=== PATIENT | female | born 1940 | race Caucasian/White ===

== ENCOUNTER 2017-06-10 11:11 | Outpatient (RCR) | payer MEDICARE, OTHER ==
[2016-02-26 12:01] VITALS: BMI 30.1
[~2017-06-10 11:11] MED LIST: ALE70 PO; AMO875 PO; AMOX-362 PO; CALC500T42 PO; CHOL10005 PO; CHOL200038 PO; CHOL400C10 PO; CLIN-75 PO; FISH OIL1 CAP PO; GLUC500C29 PO; HYDR-4309 PO; LEVO75TA73 PO; LEVOXYL PO; MEC125 PO; MECL12.5 PO; METF-410 PO; METXR500; METXR500 PO; MULT-820 PO; OMEP-125 PO; OMEP-153 PO; OXYC-865 PO
[2017-06-10 11:28] LABS: PLATELET COUNT, AUTOMATED 255 K/uL (150-450)
[2017-06-13] MEDS ORDERED: IOPAMIDOL 76% 75 ML INFUS BTL 75 ML ONE (10:16)
[2017-06-13] MEDS ORDERED: NS 0.9% 20 ML SDV 40 ML ONE (10:16)
--- NOTE | 2017-06-13 14:24 | RADIOLOGY IMAGING REPORT ---
FACILITY: [facility] PATIENT NAME: Yany Mcgrath : 1940 MR: [id number] V: [id number] EXAM DATE: ORDERING PHYSICIAN: FIDELIA RIZO TECHNOLOGIST: Location: [facility] [place] Patient: Yany Mcgrath : 1940 Visit/Account:[id number] Date of Sevice: 06/13/2017 ABDOMEN/PELVIS WITH CONTRAST HISTORY: Upper Abdomen pain and diarrhea TECHNIQUE: Following administration of IV contrast contiguous axial images acquired through the abdom en/pelvis. Coronal and sagittal reformatting also performed. Dose Lowering Technique One of the following dose optimization techniques was utilized in the performance of this exam: Autom ated exposure control; adjustment of the mA and/or kV according to the patient's size; or use of an i terative reconstruction technique. Specific details can be referenced in the facility's radiology C T exam operational policy. CONTRAST: 75 mL Isovue-370 COMPARISON: February 25, 2016 FINDINGS: Visualized lung bases: Negative. Hepatobiliary: The liver is enlarged measuring 20 cm in length Spleen: Negative. Adrenals: Negative. Pancreas: Negative. Kidneys ureters or bladder: Negative. Genitalia: The endometrial stripe is mildly thickened at 8.4 mm GI: There is mild diverticulosis left-sided colon although no CT evidence of acute diverticulitis. Vessels/spaces/nodes: Negative. Bones/soft tissues: Mild spondylosis of the lumbar spine similar to the prior study Additional findings: None pertinent. IMPRESSION: Hepatomegaly The endometrial stripe is mildly thickened at 8.4 mm. Pelvic ultrasound/FRIT COATER consultation recommended . Mild diverticulosis left-sided colon although no CT evidence of acute diverticulitis Report Dictated By: Areli Lai MD at 06/13/2017 2:07 PM Report E-Signed By: Areli Lai MD at 06/13/2017 2:19 PM WSN:[email or web address]
== END 2017-06-13 18:00 | disposition home or self-care (01) ==
LOC: CT 11:11 → LAB 11:11 → EDSTATUS 06-11 07:33 → CT 06-13 18:00
PROVIDERS: ATTEND Family Medicine
DX: R16.2 Hepatomegaly with splenomegaly, not elsewhere classified (principal); K57.30 Diverticulosis of large intestine without perforation or abscess without bleeding
CPT/HCPCS: 36415; 74177; 85025; J7050; Q9967; 82040; 82247; 82310; 82374; 82435; 82565; 82947; 84075; 84132; 84155; 84295; 84450; 84460; 84520

== ENCOUNTER → 2017-09-10 | Outpatient (CLI) | payer MEDICARE, OTHER ==
[2016-02-26 12:01] VITALS: BMI 30.1
[~2017-09-10] MED LIST changes: +SINCALIDE 5 MCG VIAL INJ ONE; +WATER FOR INJ,STERILE 20 ML 20 ML ONE
--- NOTE | 2017-09-10 16:48 | RADIOLOGY IMAGING REPORT ---
FACILITY: [facility] PATIENT NAME: Yany Mcgrath : 1940 MR: [id number] V: [id number] EXAM DATE: ORDERING PHYSICIAN: FIDELIA RIZO TECHNOLOGIST: Location: [facility] [place] Patient: Yany Mcgrath : 1940 Visit/Account:[id number] Date of Sevice: 09/10/2017 HIDA W/CCK HISTORY: Right upper quadrant pain and diarrhea TECHNIQUE: 5.9 mCi Tc99m Hepatolite was injected intravenously. Multiple sequential gamma camera juan ges of the abdomen were obtained for 54 minutes. At that time, Kinevac was injected intravenously and an additional 30 minutes of gamma camera imaging data was acquired. A computer-generated region of i nterest was placed around the gallbladder and time-activity curve for the gallbladder was derived. Th e gallbladder ejection fraction was calculated. COMPARISON: None. FINDINGS: Liver uptake and excretion: Unremarkable. Time to appearance: Bile ducts: 10 minutes. Gallbladder: 26 minutes. Duodenum: 16 minutes. Duodenal-gastric reflux / extravasation: None. Post IV Kinevac: Normal and prompt contraction of the gallbladder. Patient symptoms: None Ejection fraction = 64% (normal range >35%). IMPRESSION: Normal, gallbladder ejection fraction of 64% Report Dictated By: Areli Lai MD at 09/10/2017 4:43 PM Report E-Signed By: Areli Lai MD at 09/10/2017 4:45 PM WSN:[email or web address]
== END ==
LOC: NUC 04:06
PROVIDERS: ATTEND Family Medicine
DX: R10.12 Left upper quadrant pain (principal); R10.11 Right upper quadrant pain; R19.7 Diarrhea, unspecified
CPT/HCPCS: 78226; A9537; J2805

== ENCOUNTER → 2017-09-11 | Outpatient (CLI) | payer MEDICARE, OTHER ==
[2016-02-26 12:01] VITALS: BMI 30.1
[~2017-09-11] MED LIST changes: -SINCALIDE 5 MCG VIAL INJ ONE; -WATER FOR INJ,STERILE 20 ML 20 ML ONE
--- NOTE | 2017-09-11 15:48 | RADIOLOGY IMAGING REPORT ---
FACILITY: [facility] PATIENT NAME: Yany Mcgrath : 1940 MR: [id number] V: [id number] EXAM DATE: ORDERING PHYSICIAN: FIDELIA RIZO TECHNOLOGIST: [place] [facility] [place]any Mcgrath : 1940 Visit/Account:[id number] Date of Sevice: 09/11/2017 DEXA Scan Clinical history: Osteopenia. Comparison: DEXA scan from DEXA scan 08/14/2016. LUMBAR SPINE: The bone mineral density (BMD) measured from L1-L4 correlates with a Z-score -0.4 and a T-score of - 2.0 which is osteopenia as defined by the World Health Organization. The corresponding risk of fract ure in the lumbar spine is increased compared with a young adult reference population. This value vargas s increased by 3.9 % since the prior study. More than 5% change is considered significant. HIP: Bone mineral density (BMD) measured in the left femoral neck region correlates with a Z-score 0.4 and a T-score of -1.5 which is osteopenia as defined by the World Health Organization. The correspond ing risk of fracture in the hip is increased compared with a young adult reference population. The to brandi hip value has decreased by 4.1 % since the prior study. More than 5% change is considered signif icant. Bone mineral density (BMD) measured in the Femoral Neck region measures 0.827 g/cm2. IMPRESSION: 1. Lumbar spine: Osteopenia. There has been increase in the bone mineral density since the previous exam. 2. Left femoral neck region: Osteopenia. There has been decrease in the bone mineral density of the total hip since the previous exam. 3. Femoral Neck: Bone Mineral Density is 0.827 g/cm2 The next DEXA scan of this patient should include the following sites: L1-L4 and the left hip. FRAX? WHO Fracture Risk Assessment Tool link: <http://www.shef.ac.uk/FRAX/tool.jsp?locationValue=9> PLEASE NOTE: 1) The World Health Organization defines low BMD as follows: T-score Normal > -1 Osteopenia < -1 and > -2.5 Osteoporosis < -2.5 without fractures Established osteoporosis < -2.5 with fractures 2) In general, you may wish to consider: Diagnosis Treatment Follow-up DEXA Normal BMD Prevention 2-3 years Osteopenia Prevention/therapy 1-2 years Osteoporosis Therapy Yearly 3) Fracture risk estimated from the T-score is more accurate for vertebral fractures (often spontane ous) than for hip fractures. Report Dictated By: Sim Bahena at 09/11/2017 3:22 PM Report E-Signed By: Sim Bahena at 09/11/2017 3:43 PM WSN:[email or web address]
--- NOTE | 2017-09-12 10:29 | RADIOLOGY IMAGING REPORT ---
FACILITY: [facility] - [place] PATIENT NAME: LETICIA TERRY : [id number] MR: [id number] V: [id number] EXAM DATE: ORDERING PHYSICIAN: FIDELIA RIZO TECHNOLOGIST: Jacqueline Alvarez PROCEDURE:BILATERAL DIGITAL SCREENING MAMMOGRAM WITH CAD ASSISTED INTERPRETATION & 3D TOMOSYNTHESIS COMPARISON:Prior mammograms 05/11/16, 05/10/15, 03/30/14, 10/21/12, 08/23/11. INDICATIONS:screening FINDINGS: Mildly heterogeneous fibroglandular tissue is seen throughout the breasts. The parenchymal pattern has remained stable allowing for difference in mammographic technique & patient positioning. There is no evidence of malignant appearing mass, malignant appearing calcifications or other secondary sign of malignancy in either breast. DIAGNOSTIC CATEGORY 1--NEGATIVE. RECOMMENDATIONS: ROUTINE MAMMOGRAM AND CLINICAL EVALUATION. IMPRESSION: BIRADS 1: Negative No significant abnormality is seen. Dictated by: Areli Lai M.D. on 09/11/2017 at 16:55 Transcribed by: TIEN on 09/12/2017 at 9:20 Approved by: Areli Lai M.D. on 09/12/2017 at 10:28 [facility]
== END ==
LOC: MAMO 00:56
PROVIDERS: ATTEND Family Medicine
DX: Z13.820 Encounter for screening for osteoporosis (principal); Z12.31 Encounter for screening mammogram for malignant neoplasm of breast; M85.89 Other specified disorders of bone density and structure, multiple sites; Z78.0 Asymptomatic menopausal state
CPT/HCPCS: 77063; 77067; 77080

== ENCOUNTER 2017-09-29 06:13 | Emergency (ER) | payer MEDICARE, OTHER ==
[2016-02-26 12:01] VITALS: Wt 69.4 kg
[~2017-09-29 06:13] MED LIST changes: -METF-410 PO; +METF-411 PO
--- NOTE | 2017-09-29 06:17 | ER Report ---
History and Physical Time Seen By MD: 06:17 HPI/ROS CHIEF COMPLAINT: Finger infection HISTORY OF PRESENT ILLNESS: 76-year-old female presents ambulatory to the ER complaining of left small finger swelling and pain for 3 days. It's been severe and throbbing last night which prompted her to come to the ER early this morning. She denies fever, chills or body aches. Patient's been taking ibuprofen without relief. Allergies: Coded Allergies: amoxicillin (Verified Allergy, Unknown, NAUSEA/VOMITING, 09/29/17) Home Meds Active Scripts Cephalexin 500 Mg Tab (KEFLEX 500 MG TAB) 500 Mg Tablet, 500 MG PO TID for infection, #20 TAB Prov:RODNEY STEPHENSON DO 09/29/17 Levothyroxine Sodium (LEVOTHYROXINE SODIUM) 75 Mcg Tablet, 75 MCG PO QDAY, #30 TAB Prov:DELMAR THOMPSON MD 02/25/16 Reported Medications Cholecalciferol (Vitamin D3) (VITAMIN D3) 1,000 Unit Tablet, 2000 UNIT PO BID, TAB 03/13/16 Omeprazole (OMEPRAZOLE) Unknown Strength Capsule.dr, 1 CAP PO PRN Y for HEARTBURN, CAP 03/13/16 Metformin Hcl (METFORMIN HCL) 500 Mg Tablet, 1 TAB PO BID, TAB 03/13/16 Reviewed Nurses Notes: Yes Old Medical Records Reviewed: Yes Hx Smoking: No Smoking Status: Never Smoker Exposure to Second Hand Smoke?: No Hx Substance Use Disorder: No Hx Alcohol Use: Yes Constitutional Vital Sign - Last 24 Hours 09/29/17 09/29/17 09/29/17 09/29/17 06:19 06:20 06:30 06:43 Temp 98.1 Pulse 80 75 Resp 17 B/P (MAP) 152/89 (110) 152/89 162/80 (107) Pulse Ox 92 91 O2 Delivery Room Air Physical Exam General appearance: Alert no distress. Respiratory: Chest is non tender, lungs are clear to auscultation. Cardiac: Regular rate and rhythm Extremities: Examination of the left small finger reveals a paronychia with surrounding cellulitis extending around to the palmar surface. There is a small pustule on the lateral aspect of the nail cuticle DIFFERENTIAL DIAGNOSIS: After history and physical exam differential diagnosis was considered for paronychia, cellulitis, failing, foreign body, Medical Decision Making ED Course/Re-evaluation ED Course Patient was minute to an examination room. H&P was done. The differential diagnoses was considered. Patient looked like she might benefit from some drainage. She has severe throbbing pain. A digital block is performed. Marcaine 0.5% plain. A #11 scalpel blade was used to make a small incision along the margin of the cuticle. A small amount of purulent drainage was noted. Patient's finger was dressed. She'll be started on Keflex 500 mg 3 times daily. Patient advised to perform hot soaks. Decision to Disposition Date: September 29, 2017 Decision to Disposition Time: 06:35 Depart Departure Latest Vital Signs Vital Signs Date Time Temp Pulse Resp B/P (MAP) Pulse Ox O2 Delivery O2 Flow Rate FiO2 09/29/17 06:43 75 91 09/29/17 06:30 162/80 (107) 09/29/17 06:20 98.1 17 Room Air Impression: Primary Impression: Paronychia Additional Impressions: Cellulitis of finger of left hand Type II diabetes mellitus Condition: Improved Disposition: HOME OR SELF-CARE Referrals: FIDELIA RIZO DO (PCP) New Scripts Cephalexin 500 Mg Tab (KEFLEX 500 MG TAB) 500 Mg Tablet 500 MG PO TID for infection, #20 TAB Prov: RODNEY STEPHENSON DO 09/29/17 Patient Instructions: Cellulitis (ED) Additional Instructions: Perform warm/hot water soaks of your left small finger 2-3 times daily. Follow-up with primary care or Dr. Sarkar if unimproved in 3-5 days Problem Qualifiers Additional Impressions: Type II diabetes mellitus Diabetes mellitus continuous churn buttermaker insulin use: with continuous churn buttermaker use Diabetes mellitus complication status: without complication Qualified Codes: E11.9 - Type 2 diabetes mellitus without complications; Z79.4 - [facility] (current) use of insulin RODNEY STEPHENSON DO September 29, 2017 06:17
[2017-09-29 06:30] VITALS: BP 162/80
[2017-09-29] MEDS ORDERED: CEPHALEXIN MONO 500 MG CAP PO ONE (06:35)
[2017-09-29] MEDS ORDERED: CEPH500T7 PO (06:36)
== END 2017-09-29 06:58 | disposition home or self-care (01) ==
LOC: ER 06:32
DX: L03.012 Cellulitis of left finger (principal); E11.9 Type 2 diabetes mellitus without complications; Z79.4 Long term (current) use of insulin
CPT/HCPCS: 10060; 99282; A9270

== ENCOUNTER → 2018-04-15 | Outpatient (CLI) | payer MEDICARE, OTHER ==
[2016-02-26 12:01] VITALS: BMI 30.1
[~2018-04-15] MED LIST changes: +CEPH500T7 PO; -HYDR-4309 PO; +HYDR-653 PO; -METF-411 PO; +METF-450 PO
--- NOTE | 2018-04-15 09:42 | EKG ---
FACILITY: [facility] PATIENT NAME: LETICIA TERRY : [id number] MR: [id number] V: [id number] EXAM DATE: ORDERING PHYSICIAN: FIDELIA RIZO TECHNOLOGIST: RUTH Lechuga Reason : PREOP Blood Pressure : / mmHG Vent. Rate : 076 BPM Atrial Rate : 076 BPM P-R Int : 160 ms QRS Dur : 080 ms QT Int : 400 ms P-R-T Axes : 034 -09 022 degrees QTc Int : 450 ms Normal sinus rhythm Normal ECG When compared with ECG of 25-FEB-2016 10:57, Nonspecific T wave abnormality no longer evident in Anterior leads Confirmed by JAVIER SCHROEDER ([id number]) on 04/15/2018 1:20:14 PM Referred By: DARRIUS Confirmed By:JAVIER SCHROEDER
== END ==
LOC: LAB 08:16
PROVIDERS: ATTEND Family Medicine
DX: E11.9 Type 2 diabetes mellitus without complications (principal); E03.9 Hypothyroidism, unspecified; N81.4 Uterovaginal prolapse, unspecified
CPT/HCPCS: 36415; 82040; 82247; 82310; 82374; 82435; 82565; 82947; 83036; 84075; 84132; 84155; 84295; 84443; 84450; 84460; 84520; 85027; 93005

== ENCOUNTER 2018-04-23 01:10 | Observation (INO) | payer MEDICARE, OTHER ==
[2016-02-26 12:01] VITALS: Ht 152.4 cm; Wt 67.6 kg
[2018-04-23] VITALS (17 sets, daily range): BP systolic 103–148; BP diastolic 53–100
[~2018-04-23] VITALS: Ht 152.4 cm; Wt 67.6 kg
[2018-04-23] MEDS ORDERED: ACETAMINOPHEN(*)1000 MG/100 ML 100 ML IVPB ONE (07:00)
[2018-04-23] MEDS ORDERED: LIDOCAINE/SOD BICARB 8.4% SYR ID ONE (09:50)
[2018-04-23] MEDS ORDERED: MIDAZOLAM 2 MG/2 ML VIAL IVP PRN (09:50)
[2018-04-23] MEDS ORDERED: NORMOSOL R SOLN(*) 1000 ML BAG 1,000 ML IV PRN (09:50)
[2018-04-23] MEDS ORDERED: ONDANSETRON 4 MG/2 ML VIAL ONE (09:55)
[2018-04-23] MEDS ORDERED: DEXAMETHASONE SOD 4 MG/ML VIAL ONE (09:55)
[2018-04-23] MEDS ORDERED: LIDOCAINE MPF 1% 5 ML VIAL ONE (09:55)
[2018-04-23] MEDS ORDERED: PROPOFOL EMUL(*) 10MG/ML 20 ML 20 ML ONE (09:55)
[2018-04-23] MEDS ORDERED: fentaNYL CITR 250 MCG/5 ML AMP ONE (09:57)
[2018-04-23] MEDS ORDERED: SUGAMMADEX SOD 200 MG/2 ML SDV ONE (09:59)
[2018-04-23] MEDS ORDERED: PHENAZOPYRIDINE 200 MG TAB PO ONE (10:05)
[2018-04-23] MEDS ORDERED: ceFAZolin(*) 1 GM VIAL 1 GM in NS(*) 0.9% 100 ML ADDVANT BAG 100 ML IVPB ONE (10:05)
[2018-04-23] MEDS ORDERED: BUPIV/EPI 0.25% 1:200,000 50ML INFIL ONE (10:17)
[2018-04-23] MEDS ORDERED: VASOPRESSIN 20 UNIT/ML VIAL ONE (11:10)
[2018-04-23] MEDS ORDERED: NS(*) 0.9% 100 ML BAG 100 ML ONE ×2 (11:14→11:20)
[2018-04-23] MEDS ORDERED: ESTROGENS CONJ VAG CREAM 30 GM TUBE PV ONE (12:08)
--- NOTE | 2018-04-23 13:39 | Post Operative Note ---
Operative Note - [facility] Operative Day Date: Apr 23, 2018 Time: 13:38 Physicians Surgeon: Lopez Job Estimator: Aleksandr Anesthesia: GETA, Cretay Diagnosis Pre-Op Diagnosis: Uterovaginal prolapse Post-Op Diagnosis: Same Procedure Procedure(s): RATLH, BSO, MMC Dx cysto A&P Specimen Removed:(Maybe N/A): Uterus, tubes, ovaries Fluids Fluids: IVF: 2400cc UOP: 50cc Estimated Blood Loss: 100cc MERISSA PEREZ MD Apr 23, 2018 13:39
[2018-04-23] MEDS ORDERED: ONDANSETRON 4 MG/2 ML VIAL IV PRN (13:40)
[2018-04-23] MEDS ORDERED: MAGNESIUM HYDROXIDE* 30ML UDCP PO PRN (13:40)
[2018-04-23] MEDS ORDERED: ACETAMINOPHEN 325 MG TAB PO PRN (13:40)
[2018-04-23] MEDS ORDERED: METOCLOPRAMIDE 10 MG/2 ML SDV IV PRN (13:40)
[2018-04-23] MEDS ORDERED: SIMETHICONE 80 MG CHEW CHEW PRN (13:40)
[2018-04-23] MEDS ORDERED: HYDROmorphone HCL 2 MG/ML SDV IVP PRN (13:45)
--- NOTE | 2018-04-23 17:01 | OB/GYN Progress Note ---
OB Subjective Progress Notes Subjective Pt is feeling well. Her pain is well controlled so far. No ambulating yet. Wilson and vaginal packing still in. No CP/SOB/dizziness. OB Objective Physical Exam Vital Signs Date Time Temp Pulse Resp B/P (MAP) Pulse Ox O2 Delivery O2 Flow Rate FiO2 04/23/18 16:30 76 14 123/69 (87) 94 Nasal Cannula 1.0 04/23/18 14:20 97.7 General Appearance: Alert/Awake/No Acute Distress Neurological: No Gross deficits Eyes: Normal Extraocular Movement & Vison Cardiovascular: Normal Rhythm & Peripheral Pulses Respiratory: No Respiratory Distress, Clear to Auscultation Abdomen: Soft, Non-Tender, Non-Distended Incision: Clean, Dry, Intact Musculoskeletal: No Weakness/Pain Extremities: No Cyanosis,Clubbing or Edema Integumentary: Skin Intact without Lesions or Rash Psychological: Alert & Oriented X3, Appropriate Mood & Affect Assessment and Plan Problems: (1) History of robot-assisted laparoscopic hysterectomy Assessment & Plan: POD#0 s/p RATLH, BSO, MMC, A&P repair, cysto. Routine orders. Will remove packing tonight at 2100hrs. Continue bowel regimen. MERISSA PEREZ MD Apr 23, 2018 17:01
[2018-04-23] MEDS ORDERED: IBUP600T22 PO (17:03)
[2018-04-23] MEDS ORDERED: OXYC-865 PO (17:03)
--- NOTE | 2018-04-23 17:15 | OPERATIVE REPORT 1 ---
EVENT DATE: April 23, 2018 SURGEON: Candie Marroquin MD ANESTHESIOLOGIST: Rohan Quiroz MD ANESTHESIA: General endotracheal tube. CAT WAGON OPERATOR: Elia Brandon DO PREOPERATIVE DIAGNOSIS Uterovaginal prolapse. POSTOPERATIVE DIAGNOSIS Uterovaginal prolapse. PROCEDURES PERFORMED 1. Robotic-assisted total laparoscopic hysterectomy with bilateral salpingo- oophorectomy and modified Rodriguez culdoplasty. 2. Diagnostic cystoscopy. 3. Anterior and posterior colporrhaphy. SPECIMENS REMOVED Uterus, bilateral fallopian tubes, and bilateral ovaries. INTRAVENOUS FLUIDS 2400 mL URINE OUTPUT 50 mL ESTIMATED BLOOD LOSS 100 mL INDICATIONS FOR PROCEDURE This patient is a 77-year-old, G4, P4, who presented to clinic to discuss a vaginal bulge. On exam, she was found to have a significant uterovaginal prolapse. She was, therefore, consented for the above-said procedure. Please see the History and Physical for full details. DESCRIPTION OF PROCEDURE Patient was properly identified and taken to the operating room. She was placed under general endotracheal tube anesthesia, placed in dorsal lithotomy position, and prepped and draped in the usual fashion for laparoscopic-assisted vaginal procedure. The patient received Ancef preoperatively for prophylactic antibiotics. Her SCDs were on and functioning at the time of the procedure. A bimanual exam was performed which revealed a small anteverted uterus. A speculum was placed to visualize the cervix. The anterior lip was grasped with an Allis clamp. The cervix was serially dilated to 5 mm using Hegar dilators. At this time, with gentle traction, the cervix was able to come out 1 cm beyond the introitus. A medium VCare uterine manipulator was requested and assembled. A suture was then placed through the anterior lip of the cervix, through the os, and then from the os through the posterior lip of the cervix. This was then passed through the VCare device. The VCare was placed into the uterine fundus, and the tip was insufflated. This remained in place, and the colpotomy ring was advanced to be flush against the cervix and vaginal mucosa. This was then tied down with 0 Vicryl suture. The PneumoClear was then advanced into the vagina and secured. A Wilson catheter was then placed to drain the bladder. The patient was then placed in the supine position, and attention was turned to the laparoscopic portion of the procedure. The supraumbilical region was infiltrated with 0.25% Marcaine with epinephrine. A Veress needle was tested and proven to be functioning. An 8 mm incision was then made supraumbilically. A Veress needle was passed through this incision into the abdominal cavity using the double click test. Pneumoperitoneum was then achieved. The 8 mm trocar was introduced through the supraumbilical midline incision under direct visualization using a Synup laparoscope. Once entry into the abdominal cavity was confirmed, the remaining locations of the trocars were planned with two on the right and two on the left. The two 8 mm trocars were inserted under direct visualization on the patient's right side, and an 8 mm more medial left incision and an 11 mm incision within the 11 mm trocar on the most lateral incision on the left. At this time, the patient was placed in a Trendelenburg position. The da Vandana robotic system was prepped for docking. This was brought in an aligned. Endoscope port was docked. The endoscope was then introduced, and targeting was performed on the uterus. The remaining arms were then docked without difficulty. The fenestrated bipolar graspers, ProGrasp, and monopolar scissors were then advanced under direct visualization to the pelvis, and the energy was connected. At this time, I was able to break sterile attire and sit at the console for the hysterectomy. Examination of the pelvis revealed no significant adhesions or abnormalities. In order to initiate the salpingo-oophorectomy on the patient's right side, the right ureter was identified and noted to be far away from the IP ligament. Therefore, the IP ligament was placed on gentle traction by grasping the patient's tube and ovary. The IP was then cauterized and transected using a combination of bipolar and monopolar scissors. Once this was achieved, the fallopian tube was taken down from the pelvic sidewall, from the mesosalpinx, up to the level of the round ligament. The round ligament was then cauterized and transected, which allowed opening the broad ligament. The anterior leaflet of the broad ligament was then opened and brought across the midline above the colpotomy ring in order to separate the vesicouterine peritoneum. The posterior peritoneum was then dissected further off the uterus on the same side of the cervix down to the cervix. The uterine vessels were then identified, cauterized, and transected in order to allow the colpotomy to be performed. Attention was then turned to the patient's left side where the left ureter was identified and also noted to be far away from the IP ligament. The left IP was cauterized and transected similar to the right side. The mesosalpinx was taken down, followed by cautery and ligation of the round ligament. The round ligament was opened, and the anterior leaflet was brought down to the midline where the prior vesicouterine peritoneum on the other side had been dissected. The posterior leaflet was then also brought down to the level of the colpotomy ring. The uterine vessels were visualized and cauterized. These were taken down with monopolar scissors to the level of the colpotomy ring. At this time, the bladder flap was further delineated and brought down without difficulty to a safe area in order to allow for closure of the vaginal cuff. The colpotomy was then initiated posteriorly with identification of the colpotomy ring. The colpotomy was then continued in a circumferential fashion until the entire colpotomy was completed. The uterus was then delivered through the vagina, and a bulb grenade was placed in the vagina to maintain a pneumoperitoneum. The cuff was copiously irrigated and noted to be hemostatic. An 0 Vicryl suture was then utilized in a [id number]-[id number] fashion to reapproximate the tissue on the right corner. A V-Loc suture was then initiated on the patient's left side to reapproximate the left corner, following to the right with a suture. This was then completely closed, and the suture was followed backwards with one additional suture. Once this was completed, copious irrigation was again performed. At this time, a Rodriguez culdoplasty was then performed using an 0 Vicryl suture by incorporating the right uterosacral along the posterior aspect of the peritoneum and followed into the left uterosacral. This was then brought back across to the right side by incorporating the vaginal mucosa and cuff closure. This was then tied down in a pursestring fashion. Using the Ismael-Thomasen, the fascia of the financial legal assistant port was then closed using an 0 Vicryl with robotic assistance. All robot arms were undocked, and instruments were removed. Pneumoperitoneum was relieved, and the 11 mm fascia was tied down. All five skin incisions were reapproximated using a 4-0 Monocryl and closed with Dermabond. The Wilson catheter was then removed from the bladder. A cystoscope was assembled and introduced via urethra and into the bladder under direct visualization. The entire bladder was evaluated and deemed normal without any lesions or sutures. Bilateral ureteral jets were noted with Pyridium stained urine. The cystoscope was then removed, and the Wilson catheter was replaced. Attention was then turned to the anterior repair. Two Allis clamps were utilized at the most distal aspect of the cystocele just proximal to the vaginal cuff. An additional Allis clamp was utilized at the more distal aspect of the cystocele approximately 1 cm proximal to the urethra. A midline incision was planned using a marker. This area was then hydrodissected with dilute vasopressin solution to help hydrodissect and assist with bleeding. The vaginal tissue was then opened with a scalpel, and vaginal tissue was excised from the underlying fascia along the midline. This was then carefully dissected with blunt and sharp dissection off the underlying vaginal mucosa to a level of where the rest of the cystocele repair needed to be performed. Multiple sutures of 2- 0 Vicryl were then placed in a mattress formation, closing from the most distal to the more proximal aspect of the anterior cystocele. Once the fascia was reapproximated, the redundant vaginal tissue was excised, and the vagina was closed in the midline, working from one apex to the next using a 2-0 Vicryl. Attention was then turned to the posterior repair. Two Allis clamps were utilized at the introitus of the vaginal tissue, and a triangle was marked where the incision would occur. The anterior vaginal tissue was then hydrodissected with dilute vasopressin solution. The vaginal tissue was then excised from the underlying fascia along the midline. This was opened in the midline using Metzenbaum scissors. The underlying fascia was then carefully dissected using a combination of blunt and sharp dissection off the underlying vaginal mucosa to a level of where the rectus repair would need to be performed. Multiple sutures of 0 Vicryl were then placed in a mattress formation, closed from superior to inferior aspect of the posterior repair. Once the fascia was reapproximated, a rectal exam was performed and did confirm great support. The redundant vaginal tissue was then excised, and the vagina was closed in the midline starting at the apex of the posterior repair using a 2-0 Vicryl. This was then carried down to the level of the vaginal introitus and carried down along the perineum in the usual fashion. Hemostasis was assured. A vaginal packing was then placed to help with hemostasis. The patient tolerated this procedure well and recovered in the Post-Anesthesia Care Unit. All sponge, needle, and instrument counts were correct at the end of this procedure. ANNALEE
[2018-04-23] MEDS: KETOROLAC 15 MG/ML VIAL IVP SCH (17:31)
[2018-04-23] MEDS: FAMOTIDINE 20 MG TAB PO SCH (20:57)
[2018-04-23] MEDS: DOCUSATE CALCIUM 240 MG CAP PO SCH (20:57)
[2018-04-23] MEDS: DLR(*) 1000 ML BAG 1,000 ML IV PRN (20:58)
[2018-04-24] VITALS (7 sets, daily range): BP systolic 107–133; BP diastolic 55–70
[2018-04-24] MEDS: KETOROLAC 15 MG/ML VIAL IVP SCH ×2 (00:07→06:01)
[2018-04-24] MEDS: DLR(*) 1000 ML BAG 1,000 ML IV PRN (03:47)
[2018-04-24 06:03] LABS: PLATELET COUNT, AUTOMATED 202 K/uL (150-450)
--- NOTE | 2018-04-24 08:14 | OB/GYN Progress Note ---
OB Subjective Progress Notes Subjective Doing well. Pain controlled with oral medications. Tolerating regular diet. Wilson removed, but patient not yet ambulating or voiding. Minimal vaginal bleeding. No chest pain, shortness of breath or dizziness. OB Objective Physical Exam Vital Signs Date Time Temp Pulse Resp B/P (MAP) Pulse Ox O2 Delivery O2 Flow Rate FiO2 04/24/18 03:48 97.9 65 16 112/58 (76) 93 Nasal Cannula 2.0 Intake and Output 04/24/18 06:59 Intake Total 4277 ml Output Total 1050 ml Balance 3227 ml Intake Oral 300 ml IV Total 3977 ml Output Urine Total 1050 ml General Appearance: Alert/Awake/No Acute Distress Neurological: No Gross deficits Eyes: Normal Extraocular Movement & Vison Cardiovascular: Normal Rhythm & Peripheral Pulses Respiratory: No Respiratory Distress, Clear to Auscultation Abdomen: Soft, Non-Tender, Non-Distended Incision: Clean, Dry, Intact Musculoskeletal: No Weakness/Pain Extremities: No Cyanosis,Clubbing or Edema Integumentary: Skin Intact without Lesions or Rash Psychological: Alert & Oriented X3, Appropriate Mood & Affect Result Diagram: 04/24/18 0536 04/24/18 0536 Assessment and Plan Problems: (1) History of robot-assisted laparoscopic hysterectomy Assessment & Plan: POD#1 s/p RATLH, BSO, MMC, A&P repair, cysto. Continue bowel regimen. Will restart metformin today. Likely home today if she can void and ambulate well. MERISSA PEREZ MD Apr 24, 2018 08:14
[2018-04-24] MEDS: POLYETHYLENE GLYCOL 17 GM PKT PO SCH (08:54)
[2018-04-24] MEDS: FAMOTIDINE 20 MG TAB PO SCH ×2 (08:54→20:03)
[2018-04-24] MEDS: DOCUSATE CALCIUM 240 MG CAP PO SCH ×2 (08:54→20:04)
[2018-04-24] MEDS: metFORMIN HCL 500 MG TAB PO SCH (08:55)
[2018-04-24] MEDS ORDERED: INFLUENZA VIRUS VAC 0.5ML SYR IM ONLY ONE (12:00)
[2018-04-24] MEDS: IBUPROFEN 600 MG TAB PO PRN ×2 (12:48→22:00)
--- NOTE | 2018-04-24 17:19 | OB/GYN Progress Note ---
OB Subjective Progress Notes Subjective Patient is generally feeling well. She is ambulating and voiding. She is able to tolerate by mouth. She has still required oxygen throughout the day. She is having very light vaginal spotting. She denies any chest pain, shortness of breath or dizziness. OB Objective Physical Exam Vital Signs Date Time Temp Pulse Resp B/P (MAP) Pulse Ox O2 Delivery O2 Flow Rate FiO2 04/24/18 14:30 64 90 Room Air 04/24/18 12:40 97.3 18 118/62 (80) 1.0 Intake and Output 04/24/18 06:59 Intake Total 4277 ml Output Total 1050 ml Balance 3227 ml Intake Oral 300 ml IV Total 3977 ml Output Urine Total 1050 ml General Appearance: Alert/Awake/No Acute Distress Neurological: No Gross deficits Eyes: Normal Extraocular Movement & Vison Cardiovascular: Normal Rhythm & Peripheral Pulses Respiratory: No Respiratory Distress, Clear to Auscultation Abdomen: Soft, Non-Tender, Non-Distended Incision: Clean, Dry, Intact Musculoskeletal: No Weakness/Pain Extremities: No Cyanosis,Clubbing or Edema Integumentary: Skin Intact without Lesions or Rash Psychological: Alert & Oriented X3, Appropriate Mood & Affect Result Diagram: 04/24/18 0536 04/24/18 0536 Assessment and Plan Problems: (1) History of robot-assisted laparoscopic hysterectomy Assessment & Plan: POD#1 s/p RATLH, BSO, MMC, A&P repair, cysto. Continue bowel regimen. Will discharge her tomorrow. I would like to monitor her one more night for her oxygen status. I met with the family for proximally 20 minutes answering their questions. MERISSA PEREZ MD Apr 24, 2018 17:19
--- NOTE | 2018-04-24 17:23 | OB/GYN Discharge Summary ---
Discharge Summary Reason for Hosp/Final Diag: (1) History of robot-assisted laparoscopic hysterectomy Hospital Course & Plan: POD#1 s/p RATLH, BSO, MMC, A&P repair, cysto. Continue bowel regimen. Will discharge her tomorrow. I would like to monitor her one more night for her oxygen status. I met with the family for proximally 20 minutes answering their questions. Will plan discharge on POD#2 in the AM. Lates Vital Signs Vital Signs Date Time Temp Pulse Resp B/P (MAP) Pulse Ox O2 Delivery O2 Flow Rate FiO2 04/24/18 14:30 64 90 Room Air 04/24/18 12:40 97.3 18 118/62 (80) 1.0 Weight (Pounds): 149 Result Diagram: 04/24/18 0536 04/24/18 0536 Condition: Improved Discharge: Home, Self [facility] Meds Active Scripts Oxycodone Hcl/Acetaminophen (PERCOCET 5-325 MG TABLET) 1 Each Tablet, 1 TAB PO Q4-6H PRN for pain, #20 TAB 0 Refills Prov:MERISSA MARROQUIN MD 04/23/18 Levothyroxine Sodium (LEVOTHYROXINE SODIUM) 75 Mcg Tablet, 75 MCG PO QDAY, #30 TAB Prov:DELMAR THOMPSON MD 02/25/16 Reported Medications Cholecalciferol (Vitamin D3) (VITAMIN D3) 1,000 Unit Tablet, 2 TAB PO BID, TAB 03/13/16 Omeprazole (OMEPRAZOLE) Unknown Strength Capsule.dr, 20 MG PO PRN PRN for HEARTBURN, CAP 03/13/16 Metformin Hcl (METFORMIN HCL) 500 Mg Tablet, 1 TAB PO QDAY, TAB 03/13/16 Follow up Referrals: [facility] - In One Week with FIDELIA RIZO DO [employer] - In Two Weeks @ [facility] [place] with MERISSA MARROQUIN MD Discharge Diet: As Tolerates, Increase Fluid Intake Discharge Activity: As Tolerates, No Heavy Lifting > 10lb Special Instructions: Follow up with PCP next week to evaluate oxygen needs after surgery. Call Dr. Marroquin for questions or concerns. Continue bowel regimen: Miralax daily, Milk of magnesia daily, stool softener twice daily MERISSA MARROQUIN MD Apr 24, 2018 17:23
[2018-04-24] MEDS ORDERED: MAGNESIUM HYDROXIDE* 30ML UDCP PO SCH (21:00)
[2018-04-25 00:50] VITALS: BP 126/65
[2018-04-25 04:04] VITALS: BP 116/60
--- NOTE | 2018-04-25 07:40 | OB/GYN Progress Note ---
OB Subjective Progress Notes Subjective Doing well. Pain controlled with oral medications. Tolerating regular diet. Ambulating. Voiding. Minimal vaginal bleeding. No chest pain, shortness of breath or dizziness. Pt slept very well last night and feels prepared to go home now. OB Objective Physical Exam Vital Signs Date Time Temp Pulse Resp B/P (MAP) Pulse Ox O2 Delivery O2 Flow Rate FiO2 04/25/18 07:00 57 91 Nasal Cannula 1.0 04/25/18 05:53 12 04/25/18 04:04 98.2 116/60 (78) Intake and Output 04/25/18 07:00 Intake Total 1261 ml Output Total 300 ml Balance 961 ml Intake Oral 990 ml IV Total 271 ml Output Urine Total 300 ml # Voids 5 General Appearance: Alert/Awake/No Acute Distress Neurological: No Gross deficits Eyes: Normal Extraocular Movement & Vison Cardiovascular: Normal Rhythm & Peripheral Pulses Respiratory: No Respiratory Distress, Clear to Auscultation Abdomen: Soft, Non-Tender, Non-Distended Incision: Clean, Dry, Intact Musculoskeletal: No Weakness/Pain Extremities: No Cyanosis,Clubbing or Edema Integumentary: Skin Intact without Lesions or Rash Psychological: Alert & Oriented X3, Appropriate Mood & Affect Result Diagram: 04/24/1836 04/24/18 0536 Assessment and Plan Problems: (1) History of robot-assisted laparoscopic hysterectomy Assessment & Plan: POD#2 s/p RATLH, BSO, MMC, A&P repair, cysto. Continue bowel regimen. Will discharge today with oxygen 1L during the day at 2L at night. She will follow up with Dr. Sam about coming off of oxygen. Follow up with me as scheduled May 14, 2018. Copies to: FIDELIA SAM DO ; MERISSA PEREZ MD Apr 25, 2018 07:40
[2018-04-25] MEDS: DOCUSATE CALCIUM 240 MG CAP PO SCH (08:40)
[2018-04-25] MEDS: FAMOTIDINE 20 MG TAB PO SCH (08:40)
[2018-04-25] MEDS: metFORMIN HCL 500 MG TAB PO SCH (08:40)
[2018-04-25] MEDS: POLYETHYLENE GLYCOL 17 GM PKT PO SCH (08:40)
[2018-04-25 08:45] VITALS: BP 114/63
[2018-04-25] MEDS ORDERED: MAGNESIUM HYDROXIDE* 30ML UDCP PO SCH (21:00)
== END 2018-04-25 08:26 | disposition home or self-care (01) ==
LOC: OR 01:10 → PED 14:20
PROVIDERS: ADMIT Obstetrics & Gynecology; ATTEND Obstetrics & Gynecology
DX: N81.4 Uterovaginal prolapse, unspecified (principal); E78.5 Hyperlipidemia, unspecified; E11.9 Type 2 diabetes mellitus without complications; E03.9 Hypothyroidism, unspecified; E83.119 Hemochromatosis, unspecified; Z79.84 Long term (current) use of oral hypoglycemic drugs
CPT/HCPCS: 36415; 36416; 57260; 58571; 82948; 85025; 88307; A9270; G0378; J0131; J0690; J1100; J1170; J1885; J2001; J2405; J2704; J3010; J3490; J7050; S2900; 82310; 82374; 82435; 82565; 82947; 84132; 84295; 84520; 96372

== ENCOUNTER → 2018-12-04 | Outpatient (CLI) | payer MEDICARE, OTHER ==
[2016-02-26 12:01] VITALS: BMI 30.1
[~2018-12-04] MED LIST changes: +IBUP600T22 PO; -OMEP-125 PO; +OMEP-126 PO
--- NOTE | 2018-12-04 14:57 | RADIOLOGY IMAGING REPORT ---
FACILITY: [facility] [place] PATIENT NAME: Yany Mcgrath : 1940 MR: [id number] V: [id number] EXAM DATE: ORDERING PHYSICIAN: FIDELIA RIZO TECHNOLOGIST: Location: [facility] [place] Patient: Yany Mcgrath : 1940 Visit/Account:[id number] Date of Sevice: 12/04/2018 Clinical history: Osteopenia, postmenopausal. Comparison: 09/11/2017. LUMBAR SPINE: The bone mineral density (BMD) measured from L1-L4 correlates with a Z-score of -0.6 and a T-score of -2.2 which is osteopenia as defined by the World Health Organization. The corresponding risk of fra cture in the lumbar spine is increased 4-6 times compared with a young adult reference population. T his value has decreased by 2.8 % since the prior study. More than 5% change is considered significan t. HIP: Bone mineral density (BMD) measured in the left Total Hip region correlates with a Z-score of 0.4 and a T-score of -1.4 which is osteopenia as defined by the World Health Organization. The correspondin g risk of fracture in the hip is increased 2-3 times compared with a young adult reference population . This value has increased by 1.5 % since the prior study. More than 5% change is considered signif icant. Bone mineral density (BMD) measured in the left femoral neck correlates with a Z-score of 0.3 and a T -score of -1.7 which is osteopenia as defined by the World Health Organization. The corresponding ri sk of fracture in the hip is increased 3-4 times compared with a young adult reference population. T his value has decreased by 3.4 % since the prior study. More than 5% change is considered significan t. Bone mineral density (BMD) measured in the left Femoral Neck region measures 0.799 g/cm2. IMPRESSION: 1. Lumbar spine: Osteopenia. There has been no significant change in the bone mineral density sinc e the previous exam. 2. Left total hip: Osteopenia. There has been no significant change in the bone mineral density sinc e the previous exam. 3. Left Femoral Neck: Osteopenia. There has been no significant change in the bone mineral density s julian the previous exam 4. Left femoral neck bone mineral density: 0.799 g/cm2. The next DEXA scan of this patient should include the following sites: Lumbar spine and left hip. FRAX(R) WHO Fracture Risk Assessment Tool link: http://www.shef.ac.uk/FRAX/tool.jsp?locationValue=9 PLEASE NOTE: 1) The World Health Organization defines low BMD as follows: T-score Normal > -1 Osteopenia < -1 and > -2.5 Osteoporosis < -2.5 without fractures Established osteoporosis < -2.5 with fractures 2) In general, you may wish to consider: Diagnosis Treatment Follow-up DEXA Normal BMD Prevention 2-3 years Osteopenia Prevention/therapy 1-2 years Osteoporosis Therapy Yearly 3) Fracture risk estimated from the T-score is more accurate for vertebral fractures (often spontane ous) than for hip fractures Report Dictated By: Sakina Rivera MD at 12/04/2018 2:42 PM Report E-Signed By: Sakina Rivera MD at 12/04/2018 2:49 PM WSN:[id number]
--- NOTE | 2018-12-09 10:50 | RADIOLOGY IMAGING REPORT ---
FACILITY: [facility] PATIENT NAME: LETICIA TERRY : [id number] MR: [id number] V: [id number] EXAM DATE: [id number] ORDERING PHYSICIAN: FIDELIA RIZO TECHNOLOGIST: Jacqueline Alvarez PROCEDURE: BILATERAL DIGITAL SCREENING MAMMOGRAM WITH CAD ASSISTED INTERPRETATION & 3D TOMOSYNTHESIS. REASON FOR STUDY: Screening. COMPARISON: 09/11/17 back to 10/21/12. VIEWS OBTAINED: 2D & 3D full field CC & MLO projections. BREAST DENSITY: The breast parenchyma is consistent with scattered fibroglandular tissue. MAMMOGRAM FINDINGS: There are no developing masses, or worrisome microcalcifications in either breast. IMPRESSION: BIRADS 1: Negative. DIAGNOSTIC CATEGORY 1--NEGATIVE. RECOMMENDATIONS: ROUTINE MAMMOGRAM AND CLINICAL EVALUATION. Dictated by: Maurizio Kemp M.D. on 12/04/2018 at 15:50 Transcribed by: TIEN on 12/05/2018 at 9:46 Approved by: Sim Amaya on 12/09/2018 at 10:46 [facility]
== END ==
LOC: MAMO 00:18
PROVIDERS: ATTEND Family Medicine
DX: Z12.31 Encounter for screening mammogram for malignant neoplasm of breast (principal); M85.89 Other specified disorders of bone density and structure, multiple sites; Z80.3 Family history of malignant neoplasm of breast
CPT/HCPCS: 77063; 77067; 77080